=== PATIENT | female | born 1940 | race Caucasian/White ===

== ENCOUNTER 2017-03-17 17:53 | Emergency (ER) | payer MEDICARE, BC ==
--- NOTE | 2017-03-17 18:49 | UC ---
Upper Extremity HPI - HPI Summary HPI Summary: 77 yo F with left forearm injury and bruising after injury 03/12/17 (struck her left forearm on the marble of a bathroom vanity). Arm was bruised right away, pt has been icing it every day since injury. Pt is on xarelto for afib. Pt had blood clots in both arms in 2007 and was on "shots" twice a day (probable Lovenox) for 10 days and then warfarin. Changed from warfarin to xarelto with Dr. Kumari about 1 yr ago. And pt states she is on the xarelto for afib. - History of Current Complaint Chief Complaint: UCUpperExtremity Stated Complaint: LEFT FOREARM INJURY Time Seen by Provider: 03/17/17 18:48 Hx Obtained From: Patient Hx Last Menstrual Period: n/a Onset/Duration: Gradual Onset, Lasting Days, Still Present Severity Initially: Moderate Severity Currently: Moderate Pain Intensity: 8 Pain Scale Used: 0-10 Numeric Location Of Pain: Is Discrete @ - left forearm Character: Aching, Burning Aggravating Factor(s): Nothing Alleviating Factor(s): Nothing Associated Signs And Symptoms: Positive: Bruising Related History: Dominant Hand Right - Risk Factors DVT Risk Factors: Prior DVT, Recent Trauma - Allergies/Home Medications Allergies/Adverse Reactions: Allergies Allergy/AdvReac Type Severity Reaction Status Date / Time Nitroglycerin Allergy Intermediate Anaphylatic Verified 03/17/17 18:41 Shock PMH/Surg Hx/FS Hx/Imm Hx Cardiovascular History Of: Reports: Hypertension, Atrial Fibrillation Denies: Pacemaker/ICD, Congestive Heart Failure Respiratory History Of: Denies: Asthma, Bronchitis - Surgical History Surgical History: Yes Surgery Procedure, Year, and Place: tmj correction - Family History Known Family History: Positive: Cardiac Disease - Social History Lives: With Family Alcohol Use: None Substance Use Type: None Smoking Status (MU): Former Smoker Length of Time of Smoking/Using Tobacco: 20 + yrs Have You Smoked in the Last Year: No When Did the Patient Quit Smoking/Using Tobacco: 24 yrs ago - Immunization History Most Recent Influenza Vaccination: 08/27 Most Recent Tetanus Shot: 07/2015 Review of Systems Constitutional: Negative Skin: Bruising Eyes: Negative ENT: Negative Respiratory: Negative Cardiovascular: Negative Gastrointestinal: Negative Genitourinary: Negative Motor: Negative Neurovascular: Negative Musculoskeletal: Myalgia Neurological: Negative Psychological: Negative All Other Systems Reviewed And Are Negative: Yes Physical Exam Triage Information Reviewed: Yes Appearance: Well-Appearing, Well-Nourished, Pain Distress Vital Signs: Initial Vital Signs Temp 98.3 F 03/17/17 18:34 Pulse 73 03/17/17 18:34 Resp 14 03/17/17 18:34 BP 153/70 03/17/17 18:34 Pulse Ox 99 03/17/17 18:34 elevated BP noted Vital Signs Reviewed: Yes Eyes: Positive: Conjunctiva Clear ENT: Positive: Normal ENT inspection Neck: Positive: Supple Respiratory: Positive: Lungs clear, Normal breath sounds, No respiratory distress Cardiovascular: Positive: RRR, No Murmur, Pulses Normal, Brisk Capillary Refill Musculoskeletal: Positive: Strength Intact, ROM Intact, Other: - swelling and tenderness left forearm ventral surface, bruising purple from elbow to wrist Neurological: Positive: Alert, Muscle Tone Normal Psychological Exam: Normal Skin: Positive: Other - bruising as above Upper Extremity Course/Dx - Course Course Of Treatment: discussed that pt is on xarelto which should prevent DVT however with pt's hx, which does sound like she had true DVT and treatment for DVT in the past, and pt's continued and increased pain, pt is agreeable to go to [facility] ED for further eval for possible DVT after trauma. - Differential Dx/Diagnosis Differential Diagnosis/HQI/PQRI: Contusion, Fracture (Closed), Strain, Sprain, Other - DVT Provider Diagnoses: left forearm pain and ecchymosis. hx DVT. hx afib on xarelto - Physician Notification/Consults Time Discussed With Above Provider: 19:15 - Dr. Martínez Instructed by Provider To: Will See In ED Discharge - Discharge Plan Condition: Stable Disposition: AGAINST MEDICAL ADVICE Discharge Disposition Comment: pt to go by private car to [facility] with driving
[2017-03-17 19:20] VITALS: BP 160/78
== END 2017-03-17 19:20 | disposition left against medical advice (07) ==
LOC: UCCORT 17:53
DX: S50.12XA Contusion of left forearm, initial encounter (principal); W22.09XA Striking against other stationary object, initial encounter; Y93.9 Activity, unspecified; Y92.9 Unspecified place or not applicable; I48.91 Unspecified atrial fibrillation; Z86.718 Personal history of other venous thrombosis and embolism; Z79.01 Long term (current) use of anticoagulants; I10 Essential (primary) hypertension; Z87.891 Personal history of nicotine dependence
CPT/HCPCS: 99213; G0463

== ENCOUNTER 2017-07-29 07:51 | Emergency (ER) | payer MEDICARE, BC ==
[2017-07-29 08:02] VITALS: BP 145/71
--- NOTE | 2017-07-29 08:13 | UC ---
Respiratory Complaint HPI - HPI Summary HPI Summary: She has had nasal congestion for a few day and now has ear congestion and dull hearing. She has season allergies as well. No sinus or ear pain. no fever. she sees. Dr Alejandro for ENt related problems and congestion but no prior ENT surgery. - History of Current Complaint Chief Complaint: UCEar Stated Complaint: EAR PAIN Time Seen by Provider: 07/29/17 07:59 Hx Obtained From: Patient Hx Last Menstrual Period: n/a Onset/Duration: Gradual Onset Timing: Constant Severity Initially: Mild Severity Currently: Mild Pain Scale Used: 0-10 Numeric - 0/10 Aggravating Factors: Nothing Alleviating Factors: Nothing Associated Signs And Symptoms: Positive: URI, Nasal Congestion. Negative: Fever , Chills, Pleuritic Chest Pain, Wheezing, Calf Pain, Calf Swelling, Edema, Hoarseness, Sinus Discomfort - Allergies/Home Medications Allergies/Adverse Reactions: Allergies Allergy/AdvReac Type Severity Reaction Status Date / Time Nitroglycerin Allergy Intermediate Anaphylatic Verified 07/29/17 07:57 Shock Home Medications: Home Medications Pantoprazole TAB (NF) [Protonix TAB (NF)] 40 mg PO QAM 07/29/17 [History Confirmed 07/29/17] PMH/Surg Hx/FS Hx/Imm Hx Previously Healthy: No Cardiovascular History: Hypertension, Atrial Fibrillation - Surgical History Surgical History: Yes Surgery Procedure, Year, and Place: tmj correction - Family History Known Family History: Positive: Cardiac Disease - Social History Alcohol Use: None Substance Use Type: None Smoking Status (MU): Former Smoker Length of Time of Smoking/Using Tobacco: 20 + yrs Have You Smoked in the Last Year: No When Did the Patient Quit Smoking/Using Tobacco: 24 yrs ago - Immunization History Most Recent Influenza Vaccination: Not the 2016/2017 Season Most Recent Tetanus Shot: 07/2015 Review of Systems ENT: Sinus Congestion All Other Systems Reviewed And Are Negative: Yes Physical Exam Triage Information Reviewed: Yes Appearance: Well-Appearing, No Pain Distress, Well-Nourished Vital Signs: Initial Vital Signs Temp 98.1 F 07/29/17 07:56 Pulse 78 07/29/17 07:56 Resp 16 07/29/17 07:56 BP 145/71 07/29/17 07:56 Pulse Ox 100 07/29/17 07:56 Vital Signs Reviewed: Yes Eye Exam: Normal ENT: Positive: Pharyngeal erythema, Nasal congestion, TM bulging. Negative: TM dull, TM red, Tonsillar swelling, Tonsillar exudate, Trismus, Muffled/hoarse voice Neck exam: Normal Respiratory Exam: Normal Cardiovascular Exam: Normal Abdominal Exam: Normal Musculoskeletal Exam: Normal Neurological Exam: Normal Psychological Exam: Normal Skin Exam: Normal UC Diagnostic Evaluation - Laboratory O2 Sat by Pulse Oximetry: 100 Respiratory Course/Dx - Differential Dx/Diagnosis Provider Diagnoses: muffled hearing. uri. nasal congestion. ear congestion. Discharge - Discharge Plan Condition: Good Disposition: HOME Patient Education Materials: Cold Symptoms (ED) Referrals: Digna Balbuena MD [Primary Care Provider] - If Needed Additional Instructions: call back with the name of the medication that you sometimes get prescribed for congestion and we can call it in.
== END 2017-07-29 08:24 | disposition home or self-care (01) ==
LOC: UCCORT 07:51
DX: J06.9 Acute upper respiratory infection, unspecified (principal); I10 Essential (primary) hypertension; I48.91 Unspecified atrial fibrillation; Z87.891 Personal history of nicotine dependence; H91.8X9 Other specified hearing loss, unspecified ear; R09.81 Nasal congestion; H83.8X9 Other specified diseases of inner ear, unspecified ear
CPT/HCPCS: 99211; G0463

== ENCOUNTER 2018-08-22 09:48 | Emergency (ER) | payer MEDICARE, BC ==
[2018-08-22 12:15] VITALS: BP 138/72
--- NOTE | 2018-08-22 12:27 | UC ---
General HPI - HPI Summary HPI Summary: Patient states that on Monday she developed cough, feeling tired and some head congestion. She states that her has the same. Yesterday on 2 separate occasions she coughed up a little "pinky" to her mucus. She states that she is mainly here for that. She states that she is on several toe. Patient reports that back in July she was having issues with a little bleeding from her gums. As a result of the bleeding from her gums, she went to her disabilities caregiver to check some basic labs and decreased her his arrival to from 20-15. She has had no recurrent bleeding from her gums since and no other unusual bleeding other than this pink to her mucus which she noted on to separate occasions yesterday. - History of Current Complaint Chief Complaint: UCRespiratory Stated Complaint: COUGH Time Seen by Provider: 08/22/18 12:18 Hx Obtained From: Patient Hx Last Menstrual Period: n/a Pain Intensity: 0 Associated Signs & Symptoms: Positive: Hemoptysis. Negative: Fever, SOB, Wheezing - Allergy/Home Medications Allergies/Adverse Reactions: Allergies Allergy/AdvReac Type Severity Reaction Status Date / Time nitroglycerin Allergy Unknown Verified 08/22/18 12:10 Reaction Details Home Medications: Home Medications Irbesartan (NF) [Avapro (NF)] 150 mg PO DAILY 08/22/18 [History Confirmed ] Oxybutynin TAB* [Ditropan TAB*] 5 mg PO DAILY 08/22/18 [History Confirmed ] Rivaroxaban TAB(*) [Xarelto 15 mg(*)] 15 mg PO DAILY 08/22/18 [History Confirmed 08/22/18] PMH/Surg Hx/FS Hx/Imm Hx - Additional Past Medical History Additional PMH: dvt BUE'S Cardiovascular History: Hypertension, Atrial Fibrillation Respiratory History: Pneumonia - Surgical History Surgical History: Yes Surgery Procedure, Year, and Place: tmj correction - Family History Known Family History: Positive: Cardiac Disease - Social History Occupation: Retired Lives: With Family Alcohol Use: None Substance Use Type: None Smoking Status (MU): Former Smoker Length of Time of Smoking/Using Tobacco: 20 + yrs Have You Smoked in the Last Year: No When Did the Patient Quit Smoking/Using Tobacco: 24 yrs ago - Immunization History Most Recent Influenza Vaccination: Not the 2017/2018 Season Most Recent Tetanus Shot: 07/2015 Vaccination Up to Date: Yes Review of Systems Constitutional: Fatigue Skin: Negative Eyes: Negative ENT: Sinus Congestion Respiratory: Cough Cardiovascular: Negative Gastrointestinal: Negative Genitourinary: Negative Motor: Negative Neurovascular: Negative Musculoskeletal: Negative Neurological: Negative Psychological: Negative Is Patient Immunocompromised?: No All Other Systems Reviewed And Are Negative: Yes Physical Exam Triage Information Reviewed: Yes Appearance: Well-Appearing Vital Signs: Initial Vital Signs Temp 98.4 F 08/22/18 12:06 Pulse 68 08/22/18 12:06 Resp 18 08/22/18 12:06 BP 138/72 08/22/18 12:06 Pulse Ox 100 08/22/18 12:06 Vital Signs Reviewed: Yes Eyes: Positive: Conjunctiva Clear ENT: Positive: Pharynx normal, Nasal congestion, TMs normal. Negative: Nasal drainage Dental: Negative: Bleeding Neck: Positive: Supple, Nontender, No Lymphadenopathy Respiratory: Positive: Lungs clear, Normal breath sounds, No respiratory distress Cardiovascular: Positive: RRR, No Murmur Abdomen Description: Positive: Nontender, No Organomegaly, Soft Bowel Sounds: Positive: Present Musculoskeletal: Positive: ROM Intact, No Edema Neurological: Positive: Alert Psychological: Positive: Age Appropriate Behavior Skin Exam: Normal, Other - No petechial lesions or hematomas. Diagnostics - Radiology No standard instances Radiology Interpretation Completed By: Radiologist - cxr=IMPRESSION: 1. COPD 2. HIATAL HERNIA. 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 Course/Dx - Course Course Of Treatment: Patient's chest x-ray is unremarkable for acute disease. She is very well in appearance. Her history and physical exam supports a viral URI. Given her history of bleeding from her gums secondary to the Xarelto, this requires further investigation. No active bleeding or hemoptysis. Patient' s history and physical exam were discussed with Dr. Castillo. He suggest CBC, CMP PT-INR and chest x-ray. The labs were drawn here and are pending. Patient advised to call her primary care to be seen within the next 1-2 days and to go to the ER for any worsening which she agrees to. - Differential Dx - Multi-Symptom Provider Diagnoses: uri. hemoptysis Discharge - Sign-Out/Discharge Documenting (check all that apply): Patient Departure All imaging exams completed and their final reports reviewed: No Studies - Discharge Plan Condition: Stable Disposition: HOME Patient Education Materials: Upper Respiratory Infection (ED), Hemoptysis (ED) Referrals: Digna Balbuena MD [Primary Care Provider] - Additional Instructions: CALL DR BALBUENA TODAY TO BE SEEN IN 1-2 DAYS. GO TO THE ER FOR ANY WORSENING. - Billing Disposition and Condition Condition: STABLE Disposition: Home
--- NOTE | 2018-08-22 12:45 | RAD ---
HISTORY: HEMOPTYSIS COMPARISONS: August 21, 2012 VIEWS: 4: Frontal dual-energy and lateral views of the chest. FINDINGS: CARDIOMEDIASTINAL SILHOUETTE: The cardiomediastinal silhouette is normal. BERNARDO: The bernardo are normal. PLEURA: The costophrenic angles are sharp. No pleural abnormalities are noted. LUNG PARENCHYMA: There is hyperinflation with flattening of the diaphragm and expansion of the AP diameter of the chest. ABDOMEN: There is a moderate hiatal hernia. BONES AND SOFT TISSUES: There is age indeterminate compression deformity of the thoracolumbar junction. There is diffuse osteopenia. OTHER: None. IMPRESSION: 1. COPD 2. HIATAL HERNIA. 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
[2018-08-22 19:12] LABS: ABS Basophils 0.1 10^3/ul (0-0.2); ABS Eosinophils 0.1 10^3/ul (0-0.6); ABS Lymphocytes 1.7 10^3/ul (1.0-4.8); ABS Monocytes 0.8 10^3/ul (0-0.8); ABS Neutrophils 7.3 10^3/ul (1.5-7.7); ABS Nucleated RBC 0 10^3/ul; Eosinophil % 0.6 % (0-6); Hematocrit 40 % (35-47); Hemoglobin 13.3 g/dl (12.0-16.0); Lymphocyte % 16.9 % (25-47); Mean Corpuscular HGB Conc 34 g/dl (31-36); Mean Corpuscular Hemoglobin 30 pg (27-31); Mean Corpuscular Volume 91 fL (80-97); Mean Platelet Volume 8.5 um3 (7.4-10.4); Nucleated Red Blood Cells % 0.1; Platelet Count 361 10^3/ul (150-450); Red Blood Count 4.37 10^6/ul (4.00-5.40); Red Cell Distribution Width 14 % (10.5-15)
[2018-08-22 19:18] LABS: INR 1.18 (0.77-1.02)
[2018-08-22 19:25] LABS: EGFR Non-African American 55.5 (>60)
== END 2018-08-22 13:05 | disposition home or self-care (01) ==
LOC: UCCORT 09:48
DX: J06.9 Acute upper respiratory infection, unspecified (principal); R04.2 Hemoptysis; Z88.8 Allergy status to other drugs, medicaments and biological substances; I10 Essential (primary) hypertension; I82.723 Chronic embolism and thrombosis of deep veins of upper extremity, bilateral; Z79.01 Long term (current) use of anticoagulants; F17.210 Nicotine dependence, cigarettes, uncomplicated
CPT/HCPCS: 36415; 71046; 80053; 85025; 85610; 99211; G0463

== ENCOUNTER 2018-10-11 17:52 | Emergency (ER) | payer MEDICARE, BC ==
[2018-10-11 20:17] VITALS: BP 131/76
[2018-10-11] MEDS ORDERED: Cephalexin CAP* 500 MG PO ONE (20:58)
--- NOTE | 2018-10-11 21:48 | UC ---
Complaint Female HPI - HPI Summary HPI Summary: Pt presents with c/o dysuria X 2-3 days. - History Of Current Complaint Chief Complaint: UCGU Stated Complaint: URINARY COMPLAINT Time Seen by Provider: 10/11/18 20:25 Hx Obtained From: Patient Hx Last Menstrual Period: N/A ?: No Onset/Duration: Sudden Onset, Lasting Days, Still Present Timing: Intermittent, Lasting Seconds Severity Initially: Mild Severity Currently: Mild Pain Intensity: 0 Pain Scale Used: 0-10 Numeric Character: Burning Aggravating Factor(s): Urination Associated Signs And Symptoms: Positive: Negative - Risk Factors Ectopic Risk Factor: Negative Ovarian Torsion Risk Factor: Negative - Allergies/Home Medications Allergies/Adverse Reactions: Allergies Allergy/AdvReac Type Severity Reaction Status Date / Time nitroglycerin Allergy Unknown Verified 10/11/18 20:17 Reaction Details Home Medications: Home Medications Furosemide TAB* [Lasix TAB*] 40 mg PO DAILY 10/11/18 [History Confirmed 10/11/18 ] Montelukast Sodium TAB* [Singulair 10 MG TAB*] 10 mg PO DAILY 10/11/18 [History Confirmed 10/11/18] PMH/Surg Hx/FS Hx/Imm Hx Previously Healthy: Yes Cardiovascular History: Cardiac Disease - Surgical History Surgical History: Yes Surgery Procedure, Year, and Place: tmj correction - Family History Known Family History: Positive: Cardiac Disease - Social History Occupation: Retired Lives: With Family Alcohol Use: None Substance Use Type: None Smoking Status (MU): Former Smoker Length of Time of Smoking/Using Tobacco: 20 + yrs Have You Smoked in the Last Year: No When Did the Patient Quit Smoking/Using Tobacco: 24 yrs ago - Immunization History Most Recent Influenza Vaccination: Not the 2017/2017 Season Most Recent Tetanus Shot: 07/2015 Vaccination Up to Date: Yes Review of Systems All Other Systems Reviewed And Are Negative: Yes Constitutional: Positive: Negative Skin: Positive: Rash Eyes: Positive: Negative ENT: Positive: Negative Respiratory: Positive: Negative Cardiovascular: Positive: Negative Gastrointestinal: Positive: Negative Genitourinary: Positive: Dysuria, Frequency Motor: Positive: Negative Neurovascular: Positive: Negative Musculoskeletal: Positive: Negative Neurological: Positive: Negative Psychological: Positive: Negative Is Patient Immunocompromised?: No Physical Exam Triage Information Reviewed: Yes Appearance: Well-Appearing Vital Signs: Initial Vital Signs Temp 97.6 F 10/11/18 20:08 Pulse 76 11/29/18 20:08 Resp 17 10/11/18 20:08 BP 131/76 10/11/18 20:08 Pulse Ox 100 10/11/18 20:08 Vital Signs Reviewed: Yes Eye Exam: Normal ENT Exam: Normal Dental Exam: Normal Neck exam: Normal Respiratory Exam: Normal Respiratory: Positive: Respiratory distress Abdominal Exam: Normal Musculoskeletal Exam: Normal Neurological Exam: Normal Psychological Exam: Normal Complaint Female Dx - Differential Dx/Diagnosis Differential Diagnosis/HQI/PQRI: Urinary Tract Infection Provider Diagnosis: UTI (urinary tract infection) Discharge - Sign-Out/Discharge Documenting (check all that apply): Patient Departure All imaging exams completed and their final reports reviewed: No Studies - Discharge Plan Condition: Stable Disposition: HOME Prescriptions: Cephalexin CAP* [Keflex 500 CAP*] 500 mg PO Q8H #21 cap Patient Education Materials: Urinary Tract Infection in Women (ED) Referrals: Digna Balbuena MD [Primary Care Provider] - If Needed - Billing Disposition and Condition Condition: STABLE Disposition: Home
== END 2018-10-11 21:09 | disposition home or self-care (01) ==
LOC: UCCORT 17:52
DX: N39.0 Urinary tract infection, site not specified (principal); Z88.8 Allergy status to other drugs, medicaments and biological substances; Z87.891 Personal history of nicotine dependence
CPT/HCPCS: 81003; 87086; 99212; A9270-GY; G0463

== ENCOUNTER 2018-11-10 15:35 | Emergency (ER) | payer MEDICARE, BC ==
[2018-11-10 17:03] VITALS: BP 134/64
--- NOTE | 2018-11-10 17:14 | UC ---
UC General HPI - HPI Summary HPI Summary: 4-5 day hx worsening sinus congestion, sinus pressure and green mucous. + cough but no sob, wheezing or CP. pt states it felt like just a cold until it started to get worse. - History of Current Complaint Chief Complaint: UCGeneralIllness Stated Complaint: COUGH,SINUS COMPLAINT Time Seen by Provider: 11/10/18 17:07 Hx Obtained From: Patient Hx Last Menstrual Period: N/A Onset/Duration: Gradual Onset Timing: Constant Pain Intensity: 0 Associated Signs & Symptoms: Positive: Cough. Negative: Chest Pain, Fever, Headache, SOB, Wheezing - Allergy/Home Medications Allergies/Adverse Reactions: Allergies Allergy/AdvReac Type Severity Reaction Status Date / Time nitroglycerin Allergy Unknown Verified 11/10/18 17:03 Reaction Details Home Medications: Home Medications Acetaminophen [Tylenol Extra Strength] 1,000 mg PO DAILY 11/10/18 [History Confirmed 11/10/18] PMH/Surg Hx/FS Hx/Imm Hx - Additional Past Medical History Additional PMH: over active bladder, DVT Cardiovascular History: Atrial Fibrillation GI/ History: Gastroesophageal Reflux - Surgical History Surgical History: Yes Surgery Procedure, Year, and Place: tmj correction - Family History Known Family History: Positive: Cardiac Disease - Social History Alcohol Use: None Substance Use Type: None Smoking Status (MU): Former Smoker Length of Time of Smoking/Using Tobacco: 20 + yrs Have You Smoked in the Last Year: No When Did the Patient Quit Smoking/Using Tobacco: 24 yrs ago - Immunization History Most Recent Influenza Vaccination: Not the 2017/2017 Season Most Recent Tetanus Shot: 07/2015 Vaccination Up to Date: Yes Review of Systems All Other Systems Reviewed And Are Negative: Yes Constitutional: Positive: Negative Skin: Positive: Negative Eyes: Positive: Negative ENT: Positive: Sinus Congestion, Sinus Pain/Tenderness Respiratory: Positive: Cough Cardiovascular: Positive: Negative Gastrointestinal: Positive: Negative Genitourinary: Positive: Negative Motor: Positive: Negative Neurovascular: Positive: Negative Musculoskeletal: Positive: Negative Neurological: Positive: Negative Psychological: Positive: Negative Physical Exam Triage Information Reviewed: Yes Appearance: Well-Appearing Vital Signs: Initial Vital Signs Temp 97.3 F 11/10/18 16:58 Pulse 61 11/10/18 16:58 Resp 18 11/10/18 16:58 BP 134/64 11/10/18 16:58 Pulse Ox 100 11/10/18 16:58 Vital Signs Reviewed: Yes Eyes: Positive: Conjunctiva Clear ENT: Positive: Pharynx normal, Nasal congestion, TMs normal, Sinus tenderness. Negative: Nasal drainage Neck: Positive: Supple, Nontender, No Lymphadenopathy Respiratory: Positive: Lungs clear, Normal breath sounds, No respiratory distress Cardiovascular: Positive: RRR, No Murmur, Other: - No arrythmia at time of exam Abdomen Description: Positive: Nontender, No Organomegaly, Soft Bowel Sounds: Positive: Present Musculoskeletal: Positive: ROM Intact, No Edema Neurological: Positive: Alert Psychological: Positive: Age Appropriate Behavior Skin Exam: Normal Course/Dx - Course Course Of Treatment: given pt age, comorbid conditions and worsening, will tx for presumptive bacterial infection. - Differential Dx - Multi-Symptom Differential Diagnoses: Other - uri(viral), sinusitis, bronchitis, pneumonia - Diagnoses Provider Diagnosis: Sinusitis, Cough Discharge - Sign-Out/Discharge Documenting (check all that apply): Patient Departure All imaging exams completed and their final reports reviewed: No Studies - Discharge Plan Condition: Stable Disposition: HOME Prescriptions: Amoxicillin/Clavulanate TAB* [Augmentin TAB 875*] 875 mg PO BID 7 Days #14 tab Patient Education Materials: Sinusitis (ED), Acute Cough (ED) Referrals: Digna Balbuena MD [Primary Care Provider] - 7 Days - Billing Disposition and Condition Condition: STABLE Disposition: Home - Attestation Statements Provider Attestation: Per institutional requirements, I have reviewed the chart, however, I was not consulted specifically or made aware of this patient by the midlevel provider. I did not personally evaluate, interact with , or disposition this patient.
== END 2018-11-10 17:23 | disposition home or self-care (01) ==
LOC: UCCORT 15:35
DX: J32.9 Chronic sinusitis, unspecified (principal); R05 Cough; Z88.8 Allergy status to other drugs, medicaments and biological substances
CPT/HCPCS: 99212; G0463

== ENCOUNTER 2019-03-03 10:02 | Emergency (ER) | payer MEDICARE, BC ==
[2019-03-03 10:58] VITALS: BP 117/55
--- NOTE | 2019-03-03 11:10 | UC ---
Respiratory Complaint HPI - HPI Summary HPI Summary: Patient is a 79 year old woman , who present today to the urgent care with upper respiratory symptoms and headache for past 2 days . Her has similar symptoms and was seen at the ER last night, his flu test was negative. She reports having congestion and cough productive of greenish sputum and frontal headache .she also notices some postnasal drip. Denies any fever, chills, cough chest pain or shortness of breath . . Denies any abdominal pain , nausea or vomiting , diarrhea or constipation. she took Tylenol without much relief. - History of Current Complaint Chief Complaint: UCRespiratory Stated Complaint: CONGESTION/PATRICIO Time Seen by Provider: 03/03/19 11:07 Hx Obtained From: Patient Hx Last Menstrual Period: N/A Pain Intensity: 6 - Allergies/Home Medications Allergies/Adverse Reactions: Allergies Allergy/AdvReac Type Severity Reaction Status Date / Time nitroglycerin Allergy Unknown Verified 03/03/19 10:49 Reaction Details PMH/Surg Hx/FS Hx/Imm Hx - Additional Past Medical History Additional PMH: GERD Atrial fibrillation Hypertension DVT in both arms Previously Healthy: Yes - Surgical History Surgical History: Yes Surgery Procedure, Year, and Place: tmj correction - Family History Known Family History: Positive: Cardiac Disease, Diabetes - Social History Alcohol Use: None Substance Use Type: None Smoking Status (MU): Former Smoker Length of Time of Smoking/Using Tobacco: 20 + yrs Have You Smoked in the Last Year: No When Did the Patient Quit Smoking/Using Tobacco: 24 yrs ago - Immunization History Most Recent Influenza Vaccination: Not the 2017/2018 Season Most Recent Tetanus Shot: 07/2015 Vaccination Up to Date: Yes Review of Systems All Other Systems Reviewed And Are Negative: Yes Constitutional: Negative: Fever, Chills Skin: Positive: Negative Eyes: Positive: Negative ENT: Positive: Nasal Discharge, Sinus Congestion Respiratory: Positive: Cough - Productive of yellowish-green sputum. Negative: Shortness Of Breath Cardiovascular: Positive: Negative Gastrointestinal: Positive: Negative Genitourinary: Positive: Negative Motor: Positive: Negative Neurovascular: Positive: Negative Musculoskeletal: Positive: Negative Neurological: Positive: Headache - Frontal headaches Psychological: Positive: Negative Is Patient Immunocompromised?: No Physical Exam - Summary Physical Exam Summary: Physical Exam: Const: Appears well. No signs of apparent distress present. Alert and oriented x 3. Musculo: Walks with a normal gait. Head/Face: Atraumatic, normocephalic on inspection. Eyes: EOMI and PERRLA in both eyes. Conjunctivae clear. No discharge noted ENT: Hearing normal, TM normal appearing bilaterally, There is tenderness to palpation on maxillary and frontal sinus bilaterally No significant pharyngeal erythema or exudates . Cobblestoning noted in the posterior pharyngeal wall.. vula is midline. No cervical or submandibular lymphadenopathy noted. Respiratory: Respirations are unlabored. Lungs clear to auscultation bilaterally, no wheezing , rhonchi or rales noted . CVS: Regular rate and Rhythm, S1S2 normal , no murmurs identified. Extremities: Peripheral circulation is grossly normal. Pulses 2+ Abdomen : Soft non tender , nondistended , Bowel sounds present . No guarding , rebound tenderness or rigidity noted. Skin: No lesions or rash located on the upper extremities or on the lower extremities. Neuro: Cranial nerves II to XII intact, motor and sensory intact. DTR Intact bilaterally. Mood is normal. Affect is normal. Triage Information Reviewed: Yes Vital Signs: Initial Vital Signs Temp 99.3 F 03/03/19 10:52 Pulse 75 03/03/19 10:52 Resp 20 03/03/19 10:52 BP 117/55 03/03/19 10:52 Pulse Ox 98 03/03/19 10:52 Vital Signs Reviewed: Yes Respiratory Course/Dx - Course Course Of Treatment: During the visit today, we obtained a rapid flu test : positive. We discussed the findings and further plan. I will prescribe the medication to the pharmacy . Patient expressed understanding . - Differential Dx/Diagnosis Provider Diagnosis: Influenza Discharge - Sign-Out/Discharge Documenting (check all that apply): Patient Departure All imaging exams completed and their final reports reviewed: No Studies - Discharge Plan Condition: Stable Disposition: HOME Prescriptions: Oseltamivir CAP* [Tamiflu CAP*] 75 mg PO BID 5 Days #10 cap Patient Education Materials: Influenza (ED) Referrals: Digna Balbuena MD [Primary Care Provider] - 1 Week Additional Instructions: Please start taking the medication as prescribed to the pharmacy . Follow up with your primary care doctor in 1 week Return to Urgent care / ER if symptoms get worse. - Billing Disposition and Condition Condition: STABLE Disposition: Home
[2019-03-03 11:49] LABS: Influenza A Molecular POSITIVE (Negative)
== END 2019-03-03 12:11 | disposition home or self-care (01) ==
LOC: UCCORT 10:02
DX: J11.1 Influenza due to unidentified influenza virus with other respiratory manifestations (principal); R09.89 Other specified symptoms and signs involving the circulatory and respiratory systems; R05 Cough; R51 Headache; K21.9 Gastro-esophageal reflux disease without esophagitis; I48.91 Unspecified atrial fibrillation; I10 Essential (primary) hypertension; I82.723 Chronic embolism and thrombosis of deep veins of upper extremity, bilateral; Z88.8 Allergy status to other drugs, medicaments and biological substances; Z87.891 Personal history of nicotine dependence
CPT/HCPCS: 99212; G0463